=== PATIENT | female | born 1980 | race Caucasian/White ===

== ENCOUNTER 2016-06-03 17:28 | Emergency (ER) | payer BC ==
[~2016-06-03] VITALS: Wt 69.0 kg
[2016-06-03] MEDS ORDERED: IBUPROFEN 800 MG TAB PO ONE (18:00)
[2016-06-03] MEDS ORDERED: ONDANSETRON (ODT) 4 MG TAB ODT ONE (18:00)
--- NOTE | 2016-06-03 20:53 | RADRPT ---
PROCEDURE: CT Brain without. CLINICAL INDICATION: Trauma, pain. TECHNIQUE: A CT of the brain was performed on multidetector high-resolution CT scanner utilizing a xial sections from the skull base through the vertex without contrast. The scan was reviewed in sof t tissue brain and high frequency resolution bone algorithm windows. Images were reviewed on a high -resolution PACS workstation. One or more the following does reduction techniques were utilized: Aut omated exposure control, adjustment of the mA/ or kV according to patient's size, or use of iterativ e reconstruction technique. The exam CTDI = 45.01 mGy and the DLP = 720.23 mGy-cm. COMPARISON: None available. FINDINGS: The ventricles and sulci are age-appropriate. There is no intracranial hemorrhage, mass effect or mi dline shift. No abnormal intra-axial or extra-axial fluid collections are seen. The spring/white ruth er differentiation is preserved. No acute skull abnormality is noted. The visualized paranasal sinus es are essentially clear. IMPRESSION: 1. No acute intracranial hemorrhage, transcortical infarction or mass effect. RPTAT: HFN .Yoav Garza MD, MD Date Time Electronically viewed and signed by .Yoav Garza MD, MD on 06/03/2016 20:52 .N/
--- NOTE | 2016-06-03 20:59 | RADRPT ---
PROCEDURE: CT cervical spine without contrast CLINICAL INDICATION: Trauma. Neck pain. TECHNIQUE: CT scan of the cervical spine was performed on a multidetector high-resolution CT scanbanner. No IV contrast was administered. Coronal and sagittal reformatted images were obtained from th e axial source images. Images were reviewed on a high-resolution PACS workstation. One or more the f ollowing does reduction techniques were utilized: Automated exposure control, adjustment of the mA/ or kV according to patient's size, or use of iterative reconstruction technique. Exam CTDI = 22.32 m Gy and the DLP = 578.84 mGy-cm. COMPARISON: None available. FINDINGS: There is reversal of normal cervical lordosis centered at C4-C5 of the normal cervical lordosis. Dex troconvex curvature of the cervical spine is noted which could be positional. Alignment otherwise re amelia intact. No acute fracture or dislocation is seen. The vertebral body heights are preserved. No mass, hematoma, or other soft tissue abnormality is seen. There are multilevel mild degenerative changes of the cervical spine, manifested by osteophytosis an d disc height narrowing, most prominent at C4-C5, C5-C6 and C6-C7. Posterior disk osteophyte complex es contribute to mild spinal canal narrowing at C4-C5 and C5-C6. IMPRESSION: 1. Reversal of normal cervical lordosis centered at C4-C5. 2. No acute fracture or traumatic subluxation. 3. Multilevel mild degenerative changes of the cervical spine, most prominent at C4-C5, C5-C6 and C 6-C7. 4. Posterior disk osteophyte complexes contribute to mild spinal canal narrowing at C4-C5 and C5-C6 . RPTAT: HFN .Yoav Garza MD, MD Date Time Electronically viewed and signed by .Yoav Garza MD, MD on 06/03/2016 20:59 .N/
[2016-06-03] MEDS ORDERED: IBUP800T25 PO (21:28)
[2016-06-03] MEDS ORDERED: METH-70 PO (21:28)
[2016-06-03] MEDS ORDERED: HYDR-906 PO (21:28)
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
[2016-06-03 21:53] VITALS: BP 117/70; PULSE 73; RESP 16; TEMP 98.2
== END 2016-06-03 21:58 | disposition home or self-care (01) ==
LOC: FTE 17:28
DX: S09.90XA Unspecified injury of head, initial encounter (principal); R11.0 Nausea; S16.1XXA Strain of muscle, fascia and tendon at neck level, initial encounter; R51 Headache; V89.2XXA Person injured in unspecified motor-vehicle accident, traffic, initial encounter
CPT/HCPCS: 70450; 72125; Z7502; Z7610